=== PATIENT | female | born 1945 | race Two or more races ===

== ENCOUNTER 2018-04-07 20:31 | Emergency (ER) | payer OTHER ==
[~2018-04-07] VITALS: Ht 162.6 cm; Wt 72.6 kg
[~2018-04-07 20:31] MED LIST: ACETAMINOPHEN325 M1 ORAL; ATORVASTATIN CA40 MG ORAL; BACTRIM-DS1 EA ORAL; CATAPRES0.1 MG ORAL; DIOVAN160 MG ORAL; GLIPIZIDE5 MG ORAL; GUAIFENESIN-CO118 M1 ORAL; HYDRALAZINE HCL50 MG ORAL; LANTUS SOL100 UNIT/1 SUBQ; METFORMIN HCL850 M1 ORAL; MILK OF MA400 MG/51 ORAL; PANTOPRAZOLE SO40 MG ORAL; ZOFRAN4 M3 ORAL
[2018-04-07] MEDS ORDERED: Norco 5mg/325mg tab ORAL ONE (20:45)
[2018-04-07] MEDS ORDERED: MELOXICAM15 MG PO (21:56)
[2018-04-07 22:00] VITALS: BP 15/67
[2018-04-07 22:46] VITALS: BP 142/72
--- NOTE | 2018-04-08 00:16 | Emergency Room Report ---
History of Present Illness General Chief Complaint: Pain Source: EMS Present Illness HPI Patient is a 72-year-old female who presented after increased left sided shoulder pain. Patient had the denied any recent injuries. She had the been having increased difficulty with movement. She denies any fever. She denies any numbness or tingling to her extremities. The pain was worse with abduction. The patient denies any prior shoulder injuries. Allergies: Coded Allergies: PENICILLINS (Verified Allergy, Intermediate, 12/12/17) Patient History Past Medical History: see triage record Reviewed Nursing Documentation: PMH: Agreed; PSxH: Agreed Nursing Documentation-PMH Past Medical History: No History, Except For Hx Hypertension: Yes Hx Diabetes: Yes Hx Cancer: No Hx Gastrointestinal Problems: Yes - Disease of stomach Hx Neurological Problems: No Review of Systems All Other Systems: negative except mentioned in HPI Physical Exam Vital Signs Date Time Temp Pulse Resp B/P (MAP) Pulse Ox O2 Delivery O2 Flow Rate FiO2 04/07/18 20:29 98.1 74 16 142/67 94 Room Air 98.1 Sp02 EP Interpretation: reviewed, normal General Appearance: normal inspection, well appearing, no apparent distress, alert, GCS 15, Chronically Ill Head: atraumatic ENT: normal ENT inspection, hearing grossly normal, normal voice Neck: normal inspection, full range of motion, supple, no bony tend Respiratory: normal inspection, lungs clear, normal breath sounds, no respiratory distress, no retraction, no wheezing Cardiovascular #1: regular rate, rhythm, no edema Gastrointestinal: normal inspection, normal bowel sounds, non tender, soft, no guarding, no hernia Genitourinary: no CVA tenderness Musculoskeletal: normal inspection, back normal, tender - posterior tenderness , no skin changes, decreased rom Neurologic: normal inspection, alert, responsive, supervisor orchard III-XII nml as tested, motor strength/tone normal, speech normal Psychiatric: normal inspection, judgement/insight normal, mood/affect normal Skin: normal inspection, normal color, no rash Medical Decision Making Diagnostic Impression: Primary Impression: Hill Sachs deformity, left Additional Impression: Subluxation ER Course Patient presented for shoulder pain. Differential diagnoses included was not limited to fracture, dislocation, a.c. separation, septic joint. The patient was noted to have musculoskeletal appearing left-sided shoulder pain. There is no apparent evidence of septic joint. The patient appears to have some laxity in posterior tenderness consistent with a rotator cuff injury. The x-ray imaging of the left shoulder 3 views read by radiology showed had Hill-Sachs deformity of the proximal humerus. There is also noted to be some subluxation. Patient was placed in a sling. She is sent back to her assisted- living after discussion with her physician Dr. Jones Last Vital Signs Date Time Temp Pulse Resp B/P (MAP) Pulse Ox O2 Delivery O2 Flow Rate FiO2 04/07/18 22:46 78 18 142/72 99 Room Air 04/07/18 22:00 98.2 98.2 Status: improved Disposition: HOME, SELF-CARE Condition: Stable Scripts Meloxicam* (MELOXICAM*) 15 Mg Tablet 15 MG PO DAILY, #30 TAB Prov: Jose L Armas MD 04/07/18 Patient Instructions: Shoulder Pain, [id number] Jose L Armas MD Apr 08, 2018 00:16
== END 2018-04-07 22:55 | disposition home or self-care (01) ==
LOC: EDSEX 20:31 → EDBD 20:31 → EMR 20:47
DX: S42.292A Other displaced fracture of upper end of left humerus, initial encounter for closed fracture (principal); S43.002A Unspecified subluxation of left shoulder joint, initial encounter; X58.XXXA Exposure to other specified factors, initial encounter; Y93.9 Activity, unspecified; Y92.89 Other specified places as the place of occurrence of the external cause; E11.9 Type 2 diabetes mellitus without complications; I10 Essential (primary) hypertension; Z88.0 Allergy status to penicillin
CPT/HCPCS: 99283